=== PATIENT | female | born 1995 | race Caucasian/White ===

== ENCOUNTER → 2016-12-27 | Outpatient (CLI) | payer OTHER | LOC: LAB 13:39 | DX: R35.8 Other polyuria (principal); N92.5 Other specified irregular menstruation ==

== ENCOUNTER → 2016-12-28 | Outpatient (CLI) | payer OTHER | LOC: LAB 12:10 | DX: N92.5 Other specified irregular menstruation (principal); R35.8 Other polyuria; Z72.51 High risk heterosexual behavior ==

== ENCOUNTER → 2017-01-09 | Outpatient (CLI) | payer OTHER | LOC: LAB 14:01 | DX: N89.8 Other specified noninflammatory disorders of vagina (principal) | CPT/HCPCS: Q0111 ==

== ENCOUNTER → 2017-08-22 | Outpatient (CLI) | payer OTHER ==
[2017-08-22 18:21] LABS: URINE APPEARANCE HAZY; URINE BILIRUBIN NEGATIVE (NEGATIVE); URINE BLOOD TRACE (NEGATIVE); URINE COLOR YELLOW; URINE GLUCOSE NEGATIVE (NEGATIVE); URINE KETONE NEGATIVE (NEGATIVE); URINE LEUKOCYTE ESTERASE TRACE (NEGATIVE); URINE NITRATE NEGATIVE (NEGATIVE); URINE PROTEIN(semi-quant) NEGATIVE (NEGATIVE); URINE UROBILINOGEN NORMAL (NORMAL)
[2017-08-22 18:22] LABS: CLUE CELLS NOT OBSERVED (Not Observd); URINE MUCUS PRESENT (NOT PRESENT)
== END ==
LOC: LAB 17:56
PROVIDERS: Nurse Practitioner Family
DX: N76.0 Acute vaginitis (principal); R30.0 Dysuria; Z72.51 High risk heterosexual behavior
CPT/HCPCS: Q0111

== ENCOUNTER → 2017-10-23 | Outpatient (CLI) | payer OTHER ==
[2017-10-23 20:04] LABS: CLUE CELLS PRESENT (Not Observd)
== END ==
LOC: LAB 16:01
PROVIDERS: Family Medicine
DX: N89.8 Other specified noninflammatory disorders of vagina (principal)
CPT/HCPCS: Q0111

== ENCOUNTER → 2017-11-20 | Outpatient (CLI) | payer OTHER ==
[2017-11-20 17:14] LABS: CLUE CELLS PRESENT (Not Observd)
== END ==
LOC: LAB 15:58
PROVIDERS: Family Medicine
DX: N76.0 Acute vaginitis (principal); R30.0 Dysuria
CPT/HCPCS: Q0111

== ENCOUNTER → 2017-11-22 | Outpatient (CLI) | payer OTHER | LOC: LAB 11:07 | DX: Z34.90 Encounter for supervision of normal pregnancy, unspecified, unspecified trimester (principal) ==

== ENCOUNTER → 2017-12-20 | Outpatient (CLI) | payer OTHER ==
[2017-12-20 15:45] LABS: CLUE CELLS PRESENT (Not Observd)
== END ==
LOC: LAB 15:29
PROVIDERS: Family Medicine
DX: N76.0 Acute vaginitis (principal); N89.8 Other specified noninflammatory disorders of vagina
CPT/HCPCS: Q0111

== ENCOUNTER 2019-03-08 17:38 | Emergency (ER) | payer BC ==
[~2019-03-08] VITALS: Ht 162.6 cm; Wt 77.3 kg
[2019-03-08 18:50] LABS: EOS # 0.2 (0.04-0.40); EOS % 2.2 % (1.0-5.0); HEMATOCRIT 39.6 % (37.0-47.0); HEMOGLOBIN 12.7 g/dL (12.5-16.0); LYMPH# 2.5 (1.50-4.00); MEAN CELL VOLUME 91 fl (78-100); MEAN CORPUSCULAR HEMOGLOBIN 29 pg (27-31); MEAN CORPUSCULAR HGB CONC 32 g/dL (33-37); MEAN PLATELET VOLUME 10.2 fl (7.4-10.4); MONO # 1.1 (0.20-0.80); NEU # 6.8 (1.40-6.50); PLATELET COUNT 307 K/mm3 (130-400); RED BLOOD COUNT 4.35 M/mm3 (4.10-5.30); RED CELL DISTRIBUTION WIDTH 13.2 % (11.5-14.5); WHITE BLOOD COUNT 10.6 K/mm3 (4.8-10.8)
[2019-03-08 19:36] LABS: URINE APPEARANCE HAZY; URINE BILIRUBIN NEGATIVE (NEGATIVE); URINE BLOOD NEGATIVE (NEGATIVE); URINE COLOR YELLOW; URINE GLUCOSE NEGATIVE (NEGATIVE); URINE KETONE NEGATIVE (NEGATIVE); URINE LEUKOCYTE ESTERASE NEGATIVE (NEGATIVE); URINE MUCUS PRESENT (NOT PRESENT); URINE NITRATE NEGATIVE (NEGATIVE); URINE PROTEIN(semi-quant) TRACE mg/dL (NEGATIVE); URINE UROBILINOGEN NORMAL (NORMAL)
[2019-03-08] MEDS ORDERED: VIBRAMYCIN HYC100 MG PO (20:27)
[2019-03-08] MEDS ORDERED: METRONIDAZOLE500 M1 PO (20:27)
[2019-03-08 20:46] VITALS: BP 130/76
== END 2019-03-08 20:46 | disposition home or self-care (01) ==
LOC: ED 17:38
PROVIDERS: Family Medicine
DX: N76.0 Acute vaginitis (principal)
CPT/HCPCS: J0696

== ENCOUNTER → 2019-10-21 | Outpatient (CLI) | payer BC ==
[2019-07-07 16:41] VITALS: BP 128/85
[~2019-10-21] MED LIST: CYMBALTA30 M1 PO; METRONIDAZOLE500 M1 PO; VIBRAMYCIN HYC100 MG PO
[2019-10-21 18:15] LABS: CLUE CELLS OBSERVED (Not Observd)
== END ==
LOC: LAB 18:02
PROVIDERS: Nurse Practitioner
DX: N89.8 Other specified noninflammatory disorders of vagina (principal)
CPT/HCPCS: Q0111

== ENCOUNTER → 2019-10-30 | Outpatient (CLI) | payer BC ==
[2019-07-07 16:41] VITALS: BP 128/85
[2019-10-30 18:00] LABS: CLUE CELLS PRESENT (Not Observd)
== END ==
LOC: LAB 17:53
PROVIDERS: Nurse Practitioner
DX: N76.0 Acute vaginitis (principal)
CPT/HCPCS: Q0111

== ENCOUNTER → 2020-02-22 | Outpatient (CLI) | payer OTHER ==
[2019-07-07 16:41] VITALS: BP 128/85
[2020-02-22 15:49] LABS: CLUE CELLS NOT OBSERVED (Not Observd)
== END ==
LOC: LAB 14:17
PROVIDERS: Family Medicine
DX: N76.0 Acute vaginitis (principal)
CPT/HCPCS: Q0111

== ENCOUNTER 2022-05-15 21:10 | Emergency (ER) | payer SELFPAY ==
[~2022-05-15] VITALS: Ht 162.6 cm; Wt 79.5 kg
[2022-05-16 00:35] VITALS: BP 124/83
== END 2022-05-16 00:35 | disposition home or self-care (01) ==
LOC: ED 21:10
DX: M79.644 Pain in right finger(s) (principal); F17.210 Nicotine dependence, cigarettes, uncomplicated

== ENCOUNTER → 2022-05-23 | Outpatient (CLI) | payer SELFPAY ==
[2022-05-23 16:07] LABS: CLUE CELLS PRESENT (Not Observd)
[2022-05-25 07:17] LABS: HERPES SIMPLEX TYPE 1 IGG 0.23 Index (()); HERPES SIMPLEX TYPE 1 IGG INTP Negative (Negative); HERPES SIMPLEX TYPE 2 IGG 0.06 Index (())
== END ==
LOC: LAB 14:55
PROVIDERS: Nurse Practitioner
DX: N89.8 Other specified noninflammatory disorders of vagina (principal); L29.9 Pruritus, unspecified
CPT/HCPCS: Q0111

== ENCOUNTER → 2022-06-08 | Outpatient (CLI) | payer SELFPAY ==
[2022-06-09 00:44] LABS: HEPATITIS C ANTIBODY Negative (Negative)
[2022-06-12 08:11] LABS: HERPES SIMPLEX TYPE 1 IGG 1.38 Index (()); HERPES SIMPLEX TYPE 1 IGG INTP Positive (Negative)
== END ==
LOC: LAB 16:00
PROVIDERS: Nurse Practitioner
DX: Z20.9 Contact with and (suspected) exposure to unspecified communicable disease (principal)

== ENCOUNTER → 2022-07-03 | Outpatient (CLI) | payer BC ==
[2022-07-05 07:50] LABS: HERPES SIMPLEX TYPE 1 IGG INTP Negative (Negative); HERPES SIMPLEX TYPE 2 IGG 0.09 Index (())
== END ==
LOC: LAB 09:13
PROVIDERS: Physician Assistant
DX: F90.0 Attention-deficit hyperactivity disorder, predominantly inattentive type (principal); A60.9 Anogenital herpesviral infection, unspecified; B00.9 Herpesviral infection, unspecified

== ENCOUNTER → 2022-07-31 | Outpatient (CLI) | payer BC ==
[2022-07-31 16:35] LABS: BASO # 0.03 K/mm3 (0.02-0.10); EOS # 0.28 K/mm3 (0.04-0.40); EOS % 3.6 % (1.0-5.0); HEMATOCRIT 39.4 % (37.0-47.0); LYMPH# 2.64 K/mm3 (1.50-4.00); MEAN CELL VOLUME 95 fl (78-100); MEAN CORPUSCULAR HEMOGLOBIN 31 pg (27-31); MEAN CORPUSCULAR HGB CONC 33 g/dL (33-37); MEAN PLATELET VOLUME 9.9 fl (7.4-10.4); NEU # 4.06 K/mm3 (1.40-6.50); PLATELET COUNT 361 K/mm3 (130-400); RED BLOOD COUNT 4.17 M/mm3 (4.10-5.30); RED CELL DISTRIBUTION WIDTH 12.6 % (11.5-14.5); WHITE BLOOD COUNT 7.8 K/mm3 (4.8-10.8)
[2022-07-31 16:46] LABS: ALBUMIN 4.5 g/dL (3.5-5.0)
[2022-07-31 16:47] LABS: CALCIUM 9.8 mg/dL (8.3-10.5)
[2022-07-31 16:48] LABS: TOTAL PROTEIN 7.8 g/dL (6.4-8.3)
[2022-07-31 16:50] LABS: TOTAL BILIRUBIN 0.5 mg/dL (0.2-1.2)
[2022-08-03 07:23] LABS: HERPES SIMPLEX TYPE 1 IGG 0.38 Index (()); HERPES SIMPLEX TYPE 1 IGG INTP Negative (Negative); HERPES SIMPLEX TYPE 2 IGG 0.09 Index (())
== END ==
LOC: LAB 16:16
PROVIDERS: Physician Assistant
DX: A60.9 Anogenital herpesviral infection, unspecified (principal); R42 Dizziness and giddiness; R07.9 Chest pain, unspecified; F41.8 Other specified anxiety disorders

== ENCOUNTER → 2023-01-16 | Outpatient (CLI) | payer BC ==
[2023-01-16 16:56] LABS: BASO # 0.02 K/mm3 (0.02-0.10); EOS # 0.19 K/mm3 (0.04-0.40); EOS % 2.3 % (1.0-5.0); HEMATOCRIT 37.1 % (37.0-47.0); HEMOGLOBIN 11.9 g/dL (12.5-16.0); LYMPH# 2.25 K/mm3 (1.50-4.00); MEAN CELL VOLUME 93 fl (78-100); MEAN CORPUSCULAR HEMOGLOBIN 30 pg (27-31); MEAN CORPUSCULAR HGB CONC 32 g/dL (33-37); MEAN PLATELET VOLUME 9.8 fl (7.4-10.4); MONO # 0.75 K/mm3 (0.20-0.80); NEU # 4.88 K/mm3 (1.40-6.50); PLATELET COUNT 339 K/mm3 (130-400); RED BLOOD COUNT 4.01 M/mm3 (4.10-5.30); RED CELL DISTRIBUTION WIDTH 12.6 % (11.5-14.5); WHITE BLOOD COUNT 8.1 K/mm3 (4.8-10.8)
[2023-01-16 17:52] LABS: POTASSIUM 3.5 mmol/L (3.5-5.1)
[2023-01-16 17:53] LABS: ALBUMIN 4.3 g/dL (3.5-5.0)
[2023-01-16 17:54] LABS: CALCIUM 9.5 mg/dL (8.3-10.5)
[2023-01-16 17:55] LABS: TOTAL PROTEIN 7.4 g/dL (6.4-8.3)
[2023-01-16 17:57] LABS: TOTAL BILIRUBIN 0.2 mg/dL (0.2-1.2)
[2023-01-18 06:57] LABS: HERPES SIMPLEX TYPE 1 IGG 0.16 Index (()); HERPES SIMPLEX TYPE 1 IGG INTP Negative (Negative); HERPES SIMPLEX TYPE 2 IGG 0.05 Index (())
== END ==
LOC: LAB 16:35
PROVIDERS: Physician Assistant
DX: Z13.29 Encounter for screening for other suspected endocrine disorder (principal); Z13.1 Encounter for screening for diabetes mellitus; Z13.220 Encounter for screening for lipoid disorders; F90.0 Attention-deficit hyperactivity disorder, predominantly inattentive type; G44.89 Other headache syndrome; E07.9 Disorder of thyroid, unspecified; F41.8 Other specified anxiety disorders; N97.9 Female infertility, unspecified; K90.9 Intestinal malabsorption, unspecified; Z20.9 Contact with and (suspected) exposure to unspecified communicable disease

== ENCOUNTER 2024-10-06 17:23 | Emergency (ER) | payer MEDICAID ==
[~2024-10-06] VITALS: Ht 162.6 cm; Wt 79.5 kg
[2024-10-06] MEDS ORDERED: NS 500 ML IV SCH (18:15)
[2024-10-06 18:23] LABS: BASO # 0.01 K/mm3 (0.02-0.10); EOS # 0.24 K/mm3 (0.04-0.40); EOS % 1.9 % (1.0-5.0); HEMATOCRIT 41.5 % (37.0-47.0); HEMOGLOBIN 13.8 g/dL (12.5-16.0); LYMPH# 0.83 K/mm3 (1.50-4.00); MEAN CELL VOLUME 92 fl (78-100); MEAN CORPUSCULAR HEMOGLOBIN 31 pg (27-31); MEAN CORPUSCULAR HGB CONC 33 g/dL (33-37); MONO # 1.06 K/mm3 (0.20-0.80); NEU # 10.22 K/mm3 (1.40-6.50); PLATELET COUNT 432 K/mm3 (130-400); WHITE BLOOD COUNT 12.4 K/mm3 (4.8-10.8)
[2024-10-06 18:30] LABS: ALBUMIN 4.7 g/dL (3.5-5.0)
[2024-10-06 18:31] LABS: PH-URINE 5.5 (5.0 - 8.0); URINE APPEARANCE SLIGHTLY CLOUDY (CLEAR); URINE BILIRUBIN NEGATIVE (NEGATIVE); URINE BLOOD NEGATIVE (NEGATIVE); URINE COLOR YELLOW (YELLOW); URINE GLUCOSE NEGATIVE (NEGATIVE); URINE KETONE NEGATIVE (NEGATIVE); URINE LEUKOCYTE ESTERASE NEGATIVE (NEGATIVE); URINE NITRATE NEGATIVE (NEGATIVE); URINE PROTEIN(semi-quant) NEGATIVE (NEGATIVE)
[2024-10-06 18:32] LABS: CALCIUM 9.3 mg/dL (8.3-10.5)
[2024-10-06 18:33] LABS: TOTAL PROTEIN 7.9 g/dL (6.4-8.3)
[2024-10-06 18:35] LABS: TOTAL BILIRUBIN 0.3 mg/dL (0.2-1.2); URINE MUCUS PRESENT (NOT PRESENT)
[2024-10-06] MEDS ORDERED: Ondansetron 4 MG/2 ML VIAL IV ONE (19:00)
[2024-10-06] MEDS ORDERED: Iohexol 300 - 100 ML VIAL IV ONE (19:16)
[2024-10-06] MEDS ORDERED: KETOROLAC10 MG PO (20:52)
[2024-10-06] MEDS ORDERED: ZOFRAN ODT4 MG PO (20:52)
[2024-10-06] MEDS ORDERED: Home Ondansetron ODT 4 MG #2 ODT/PACK PO ONE (21:00)
[2024-10-06] MEDS ORDERED: Home Ketorolac 10 MG #4 TABS/PACK PO ONE (21:00)
[2024-10-06] MEDS ORDERED: Ketorolac 30 MG/ML VIAL IV ONE (21:00)
[2024-10-06 21:13] VITALS: BP 117/77
== END 2024-10-06 21:13 | disposition home or self-care (01) ==
LOC: ED 17:23
PROVIDERS: Nurse Practitioner Family
DX: K80.50 Calculus of bile duct without cholangitis or cholecystitis without obstruction (principal)
CPT/HCPCS: J1885; J2405; J7040; Q9967